=== PATIENT | female | born 1975 | race Caucasian/White ===

== ENCOUNTER 2017-12-02 06:08 | Inpatient (IN) ==
[2017-12-02] MEDS ORDERED: FAMOTIDINE 20 MG/2 ML VIAL IVP ONE (06:15)
[2017-12-02] MEDS ORDERED: ONDANSETRON 4 MG/2 ML VIAL IVP ONE ×3 (06:15→10:39)
[2017-12-02] MEDS ORDERED: Sodium Chloride 0.9% 1,000 ML PRIMARY IV ONE (06:15)
--- NOTE | 2017-12-02 06:22 | PDOC ---
Nausea/Vomiting/Diarrhea HPI - General Chief Complaint: Nausea / Vomiting / Diarrhea Stated Complaint: nausea,vomiting, "withdrawing from meds" Date Seen by Provider: 12/02/17 Time Seen by Provider: 06:15 Source: POSITIVE: Patient Exam Limitations: POSITIVE: No limitations Nurse's Notes Reviewed & Considered: Yes - History of Present Illness Initial Comments: The patient is a 42-year-old female who presents to the emergency department with vomiting, abdominal cramping and diarrhea. She has been taking hydrocodone for approximately a year after a back surgery. She had to stop taking this medication to go back to work 2 days ago. Last night she had onset of abdominal cramping, nausea vomiting and diarrhea. She thinks that this might be from withdrawal. She reports generalized abdominal pain. She has had previous cholecystectomy and breast reduction surgery. - Patient Home Medications Home Medications: Home Medications NK 12/02/17 - Patient Allergies Allergies/Adverse Reactions: Allergies 3 Allergy/AdvReac Type Severity Reaction Status Date / Time No Known Allergies Allergy Verified 12/02/17 06:12 Past Medical History Past Medical History Reviewed: Other (please comment) (As per nursing assessment ) ROS - Limitations ROS Limitations: No Limitations Constitution: REPORTS: Chills Cardiovascular: REPORTS: Denies Cardiac Symptoms Respiratory: REPORTS: Denies Resp Symptoms Neurological: REPORTS: Denies Neuro Symptoms Gastrointestinal: REPORTS: Abdominal Pain (Generalized), Nausea, Vomitting, Diarrhea. DENIES: Bloody Stools Endocrine: REPORTS: Denies Symptoms Musculoskeletal: REPORTS: Denies MS Symptoms Genitourinary: REPORTS: Denies Symptoms Eyes: REPORTS: Denies Symptoms ENT: REPORTS: Denies Symptoms Skin: DENIES: Rash Nausea/Vomiting/Diarrhea Exam - General Appearance General Appearance: POSITIVE: Alert, Cooperative, No Acute Distress - HEENT HEENT: POSITIVE: Head Inspection Nml, Eyes Inspection Nml, Ears Inspection Nml, Nose Inspection Nml - Neck Neck: POSITIVE: Supple - Respiratory Respiratory: POSITIVE: No Respiratory Distress, Breath Sounds Normal - Cardiovascular Cardiovascular: POSITIVE: Regular Rate and Rhythm, Heart Sounds Normal - Abdomen Abdomen: Soft: (All Quadrants), No Distention: (All Quadrants) - Extremities Extremity: Normal ROM: (All Extremities), Normal Inspection: (All Extremities) - Neurological / Psychological Neurological: POSITIVE: Other (No focal neurologic deficits) N/V/D Progress - Results Reviewed by me Xrays/CTs/US Reviewed by me: Yes Discussed with Radiologist: Yes Radiology Findings: CT scan of the abdomen and pelvis with IV contrast shows some inflammatory change with bowel wall thickening in the small bowel consistent with possible enteritis per radiologist. Lab Results Reviewed by Me: Yes CBC and BMP: 12/02/17 06:20 12/02/17 06:20 Lab Results:: Laboratory Results 3 12/02/17 12/02/17 12/02/17 06:20 06:20 06:20 WBC 13.95 H RBC 5.04 Hgb 14.1 Hct 41.6 MCV 82.5 MCH 28.0 MCHC 33.9 RDW Std Deviation 43.1 RDW Coeff of Linh 14.5 Plt Count 301 MPV 10.6 Immature Gran % (Auto) 0.2 Neut % (Auto) 81.8 H Lymph % (Auto) 13.7 Casey % (Auto) 3.7 L Eos % (Auto) 0.3 Baso % (Auto) 0.3 Immature Gran # (Auto) 0.03 Neut # (Auto) 11.41 Lymph # (Auto) 1.91 Casey # (Auto) 0.52 Eos # (Auto) 0.04 Baso # (Auto) 0.04 WBC Morphology Comment Normal morphology Plt Morphology Comment Normal morphology RBC Morph Comment Normal morphology Sodium 138 Potassium 4.4 Chloride 107 Carbon Dioxide 25 Anion Gap 6 BUN 9 Creatinine 0.7 Estimated GFR > 60 BUN/Creatinine Ratio 12.85 Glucose 156 H Calculated Osmolality 287.0 Calcium 9.3 Magnesium 1.9 Total Bilirubin 0.5 AST 28 ALT 44 Alkaline Phosphatase 84 C-Reactive Protein 1.2 H Total Protein 7.5 Albumin 4.2 Globulin 3.3 Albumin/Globulin Ratio 1.20 L Amylase 55 Lipase 72 Serum HCG, Qual Negative - Patient's Progress MDM / ED Course: An IV was established and the patient did receive 1 L bolus of normal saline as well as Zofran 4 mg IV, Pepcid 20 mg IV. She did not have any significant relief in nausea and subsequently received Compazine 5 mg IV. Patient had continued dry heaves and vomiting and received Ativan for treatment of possible withdrawal. She continued to have significant abdominal cramping as well as report that her skin is "crawling". She also had continued dry heaves and vomiting. She received a second dose of Zofran 4 mg IV. Blood work shows a mildly elevated white count at 13,000. The remainder of her blood work is essentially unremarkable. CT scan of the abdomen and pelvis shows some inflammatory change in bowel wall thickening in the small bowel consistent with possible enteritis with no other acute abnormalities per radiologist. Overall the patient's presentation is most likely consistent with narcotic withdrawal. I did discuss this with the patient. 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 The CAT scan also shows possible enteritis. The patient is still vomiting after multiple medications here in the emergency department and decision was made to admit. Dr. Valencia has agreed to admit the patient. He recommended starting Invanz for treatment of possible diverticulitis/enteritis. These findings and recommendations were discussed with the patient and she is in agreement with this plan. - Consult Counseled: POSITIVE: Patient, RE: Lab Results, RE: Radiology Results, RE: DX Patient Care Time - Estimated PCT Patient Care Time (In Minutes): 30 Vital Signs - Recent Vital Signs Vital Signs: Vital Signs (Last 8 hours) Temp Pulse Resp BP Pulse Ox 12/02/17 06:13 96.2 F L 67 18 146/78 97 - VS Reviewed Vital Signs Reviewed: Yes Discharge Clinical Impression: Abdominal pain, Enteritis, Vomiting, Dehydration, Narcotic withdrawal Discharge Disposition: Admit to Observation Condition: Fair Follow Up With: ULISES LEUNG [Primary Care Provider] -
[2017-12-02 06:25] LABS: BASOPHILS # (AUTO) 0.04 10*3/UL; BASOPHILS % (AUTO) 0.3 % (0-1); EOSINOPHILS # (AUTO) 0.04 10*3/UL; EOSINOPHILS % (AUTO) 0.3 % (0-8); Hematocrit [HCT] 41.6 % (37.0-47.0); Hemoglobin [HGB] 14.1 g/dL (12.0-16.0); LYMPHOCYTES # (AUTO) 1.91 10*3/uL; MEAN CORPUSCULAR HGB CONC 33.9 g/dL (33-37); MEAN CORPUSCULAR VOLUME 82.5 FL (81-99); MEAN PLATELET VOLUME 10.6 FL (7.4-12.2); MONOCYTES # (AUTO) 0.52 10*3/UL (0.3-0.8); MONOCYTES % (AUTO) 3.7 % (5-15); NEUTROPHILS # (AUTO) 11.41 10*3/UL; NEUTROPHILS % (AUTO) 81.8 % (50-80); RED BLOOD COUNT 5.04 10^6/uL (4.20-5.40)
[2017-12-02 06:40] LABS: BLOOD UREA NITROGEN 9 mg/dL (7-22); BUN/CREATININE RATIO 12.85 (6-20); LIPASE 72 IU/L (23-300); SERUM ALBUMIN 4.2 g/dL (3.5-4.8)
[2017-12-02] MEDS ORDERED: Prochlorperazine Edisylate Inj 10mg/2ml vial IVP ONE (06:40)
[2017-12-02 06:51] LABS: PLATELET MORPHOLOGY COMMENT NORMAL MORPHOLOGY (NORM); RBC MORPHOLOGY COMMENT NORMAL MORPHOLOGY (NORM); WBC MORPHOLOGY COMMENT NORMAL MORPHOLOGY (NORM)
[2017-12-02] MEDS ORDERED: LORazepam 2 MG/1 ML VIAL IVP ONE (07:40)
--- NOTE | 2017-12-02 07:54 | DI ---
EXAM: CT Abdomen and Pelvis With Intravenous Contrast. CLINICAL HISTORY: Abdominal pain and vomiting. TECHNIQUE: Axial computed tomography images of the abdomen and pelvis with intravenous contrast. COMPARISON: No relevant prior studies available. FINDINGS: Lower thorax: No acute findings. ABDOMEN: Liver: Unremarkable. No mass. Gallbladder and bile ducts: The gallbladder is surgically absent. No evidence of biliary obstruction.. Pancreas: Unremarkable. No ductal dilation. No mass. Spleen: Unremarkable. No splenomegaly. Adrenals: Unremarkable. No mass. Kidneys and ureters: Unremarkable. No hydronephrosis. No solid mass. PELVIS: Bladder: Unremarkable. No mass. Reproductive: Enlarged uterus likely due to presence of a fibroid. Simple appearing left ovarian cyst measuring up to 3.2 cm in diameter. Appendix: No findings to suggest acute appendicitis. ABDOMEN + PELVIS: Stomach and bowel: No bowel obstruction. Questionable mild concentric wall thickening of mid small bowel loops, though evaluation is limited by absence of enteric contrast. Peritoneum: Unremarkable. No significant fluid collection. No free air. Lymph nodes: Unremarkable. No enlarged lymph nodes. Vasculature: Unremarkable. No aortic aneurysm. Bones: No acute fracture. IMPRESSION: Questionable mild small bowel wall thickening, which may be due to infectious/inflammatory enteritis. Otherwise no evidence of acute inflammatory or obstructive process within the abdomen or pelvis. Fibroid uterus. Status post cholecystectomy.
[2017-12-02] MEDS ORDERED: Ertapenem Inj 1 GM in Sodium Chloride 0.9% 100 ML IV ONE (08:36)
[2017-12-02] MEDS ORDERED: LIDOCAINE W/ SODIUM BICARB 0.5 ML SYR SUBD PRN (10:11)
[2017-12-02 10:16] LABS: BILIRUBIN,URINE NEGATIVE (NEG); CLARITY,URINE Slightly Cloudy (CLEAR); COLOR,URINE YELLOW (Y); GLUCOSE, URINE (UA) NEGATIVE (NEG); OCCULT BLOOD,URINE Trace-intact (NEG); PROTEIN,URINE 30 mg/dl (NEG); UROBILINOGEN,URINE 0.2 EU/dL (0.2)
[2017-12-02] MEDS: KETOROLAC 15 MG/1 ML VIAL IVP PRN ×2 (10:26→17:12)
[2017-12-02] MEDS: Lactated Ringers 1,000 ML PRIMARY IV SCH ×2 (10:26→20:40)
[2017-12-02 10:30] LABS: RBC,URINE 0-1 /hpf; SQUAMOUS EPITHELIAL CELL,UR RARE; URINE SAMPLE TYPE CLEAN CATCH URINE; WBC,URINE 0
[2017-12-02 10:31] LABS: AMPHETAMINE SCREEN NEGATIVE (NEG); CANNABINOID SCREEN,URINE NEGATIVE (NEG); COCAINE SCREEN NEGATIVE (NEG); METHADONE URINE SCREEN NEGATIVE (NEG); METHAMPHETAMINES SCREEN,URINE NEGATIVE (NEG); OPIATE SCREEN,URINE POSITIVE (NEG); URINE SPECIFIC GRAVITY - MAN 1.015
--- NOTE | 2017-12-02 12:37 | PDOC ---
HPI - History of Present Illness History of Present Illness: T This is a very nice 42-year-old female presented to the emergency room complaining of some vomiting and abdominal cramping and loose stools not maliha diarrhea she has been taking hydrocodone for a year after back surgery and she states that she stopped taking this medications a couple of days ago for her work issues she thinks that she is having withdrawal other past medical history significant for breast reduction and cholecystectomy. Urine tox screen positive for opiates and benzos she did not receive any benzos are opiates here in the hospital Past Medical History Surgical History: Cholecystectomy, breast reduction Tobacco Use: Current Every Day Smoker In the Past 12 Months, Have Used or Abuse Any of the Following Substance: None Medication / Allergies Home Medications: Home Medications 3 Medication Instructions Recorded Confirmed Type NK 12/02/17 12/02/17 History Allergies/Adverse Reactions: Allergies 3 Allergy/AdvReac Type Severity Reaction Status Date / Time No Known Allergies Allergy Verified 12/02/17 06:12 Review of Systems - Review of Systems All Systems: Reviewed & No Additional Complaints Except as Stated - Respiratory Respiratory: DENIES: Negative System Review, Cough, Sputum, Dyspnea At Rest, Dyspnea with Exertion, Pleuritic Pain, Hemoptysis, Wheezing, Other, See HPI - Gastrointestinal Gastrointestinal / Abdominal: REPORTS: Nausea, Diarrhea Exam - Vitals Vital Signs: Vital Signs Temperature 97.8 F Temperature Source Temporal Artery Scan Pulse Rate [Pulse Oximeter] 68 Respiratory Rate 22 Blood Pressure [Left Arm] 149/58 Pulse Ox 94 Oxygen Delivery Method Room Air Height 5 ft 5 in Weight 206 lb - General General Appearance: No Acute Distress, Cooperative - Respiratory Respiratory Exam: POSITIVE: Clear to Auscultation - Bilaterally, Breathing Non Labored, Normal To Percussion, Normal to Percussion and Palpation - Cardiovascular Cardiovascular Exam: POSITIVE: RRR, No Murmur, No Clicks, No Gallops, No Rubs, PMI Non-Displaced - GI/Abdominal GI/Abdominal Exam: POSITIVE: Normal Bowel Sounds, Non Tender, Non Distended, Soft, No Masses, No Hepatomegaly, No Splenomegaly, No Organomegaly - Extremities Extremities Exam: POSITIVE: No Clubbing Present, No Edema Present, No Cyanosis Present Results - Labs CBC and BMP: 12/02/17 06:20 12/02/17 06:20 Assessment and Plan - Patient Problems (1) Abdominal pain Current Visit: Yes Status: Acute Comment: Patient seems to be not in pain at present time physical exam benign abdomen no rebound no guarding totally soft. She still has open dose in her urine hard to tell this is would draw she does have some enteritis on CT scan and patient is being treated with Invanz we will keep hydrating and reevaluate Code(s): R10.9 - Unspecified abdominal pain
[2017-12-02] MEDS: LORazepam 2 MG/1 ML VIAL IVP PRN ×2 (13:28→20:40)
[2017-12-02] MEDS: ONDANSETRON 4 MG/2 ML VIAL IVP PRN ×2 (17:13→22:45)
[2017-12-02 20:10] VITALS: RESP 20
[2017-12-03] MEDS: KETOROLAC 15 MG/1 ML VIAL IVP PRN ×2 (01:15→07:39)
[2017-12-03] MEDS ORDERED: LORazepam 2 MG/1 ML VIAL IVP ONE (01:20)
[2017-12-03] MEDS ORDERED: LORazepam 2 MG/1 ML VIAL IVP PRN ×2 (01:33→07:47)
[2017-12-03] MEDS: ONDANSETRON 4 MG/2 ML VIAL IVP PRN ×2 (04:17→11:03)
[2017-12-03 04:21] VITALS: O2SAT 94
[2017-12-03] MEDS: Lactated Ringers 1,000 ML PRIMARY IV SCH ×3 (05:21→10:51)
[2017-12-03 05:37] LABS: BLOOD UREA NITROGEN 12 mg/dL (7-22); LIPASE 37 IU/L (23-300); SERUM ALBUMIN 3.4 g/dL (3.5-4.8)
[2017-12-03 07:43] LABS: BASOPHILS # (AUTO) 0.03 10*3/UL; BASOPHILS % (AUTO) 0.3 % (0-1); EOSINOPHILS # (AUTO) 0.04 10*3/UL; EOSINOPHILS % (AUTO) 0.3 % (0-8); Hematocrit [HCT] 35.3 % (37.0-47.0); Hemoglobin [HGB] 11.8 g/dL (12.0-16.0); LYMPHOCYTES # (AUTO) 2.53 10*3/uL; MEAN CORPUSCULAR HGB CONC 33.4 g/dL (33-37); MEAN CORPUSCULAR VOLUME 83.6 FL (81-99); MEAN PLATELET VOLUME 10.9 FL (7.4-12.2); MONOCYTES # (AUTO) 0.85 10*3/UL (0.3-0.8); MONOCYTES % (AUTO) 7.1 % (5-15); NEUTROPHILS # (AUTO) 8.44 10*3/UL; NEUTROPHILS % (AUTO) 70.9 % (50-80); RED BLOOD COUNT 4.22 10^6/uL (4.20-5.40)
[2017-12-03] MEDS ORDERED: Ertapenem Inj 1 GM in Sodium Chloride 0.9% 100 ML IV SCH (08:00)
[2017-12-03] MEDS ORDERED: MORPHINE SULFATE 2 MG/1 ML IVP PRN (08:15)
[2017-12-03 08:23] LABS: PLATELET MORPHOLOGY COMMENT NORMAL MORPHOLOGY (NORM); RBC MORPHOLOGY COMMENT NORMAL MORPHOLOGY (NORM); WBC MORPHOLOGY COMMENT NORMAL MORPHOLOGY (NORM)
[2017-12-03 09:38] VITALS: BP 148/77; TEMP 98.2
--- NOTE | 2017-12-03 10:47 | DCSUMMARY ---
Hospitalization Summary Hospital Course: Final Discharge Diagnosis: Current Visit Problems Problem Status Onset Code Abdominal pain Acute R10.9 Enteritis Acute K52.9 Vomiting Acute R11.10 Dehydration Acute E86.0 Narcotic withdrawal Acute F11.23 Diagnostic Data, Laboratory Data, and Procedures of Signifigance: Laboratory Results 12/03/17 12/03/17 Range/Units 04:40 04:43 WBC 11.91 H (4.8-10.8) 10^3/uL RBC 4.22 (4.20-5.40) 10^6/uL Hgb 11.8 L (12.0-16.0) g/dL Hct 35.3 L (37.0-47.0) % MCV 83.6 (81-99) FL MCH 28.0 (27-31) PG MCHC 33.4 (33-37) g/dL RDW Std Deviation 42.2 (39-50) fL RDW Coeff of Linh 14.3 (11.5-14.5) % Plt Count 261 (140-350) 10*3/uL MPV 10.9 (7.4-12.2) FL Immature Gran % (Auto) 0.2 (0-5) % Neut % (Auto) 70.9 (50-80) % Lymph % (Auto) 21.2 (10-50) % Mingo % (Auto) 7.1 (5-15) % Eos % (Auto) 0.3 (0-8) % Baso % (Auto) 0.3 (0-1) % Immature Gran # (Auto) 0.02 10*3/UL Neut # (Auto) 8.44 10*3/UL Lymph # (Auto) 2.53 10*3/uL Mingo # (Auto) 0.85 H (0.3-0.8) 10*3/UL Eos # (Auto) 0.04 10*3/UL Baso # (Auto) 0.03 10*3/UL WBC Morphology Comment Normal morphology (NORM) Plt Morphology Comment Normal morphology (NORM) RBC Morph Comment Normal morphology (NORM) Sodium 135 (135-145) meq/L Potassium 3.9 (3.8-5.2) meq/L Chloride 105 (98-112) meq/L Carbon Dioxide 24 (23-33) meq/L Anion Gap 6 (5-20) BUN 12 (7-22) mg/dL Creatinine 0.8 (0.50-1.20) mg/dL Estimated GFR > 60 (>60 ml/min/1.73m(2)) BUN/Creatinine Ratio 15.00 (6-20) Glucose 120 H (78-110) mg/dL Calculated Osmolality 280.0 (267-292) mOsm/kg Calcium 8.8 (8.7-10.7) mg/dL Total Bilirubin 0.4 (0.3-1.2) mg/dL AST 17 (8-39) IU/L ALT 33 (9-52) IU/L Alkaline Phosphatase 64 (38-126) IU/L Total Protein 6.0 L (6.1-8.0) g/dL Albumin 3.4 L (3.5-4.8) g/dL Globulin 2.6 (2.50-4.10) g/dL Albumin/Globulin Ratio 1.30 (1.3-2.0) mg/g Amylase < 30 L (30-110) U/L Lipase 37 (23-300) IU/L History and Physical pertinent to Admission: Course of Hospitalization: Is a very nice 42-year-old female who comes in with abdominal pain CT scan abdomen and pelvis revealed the enteritis. Patient requested the Ativan specifically around the clock for her anxiety. She did feel better yesterday took showers slept. Physical exams were always a benign abdomen absolutely soft no illicit elicitation of pain on deep mild palpation patient receive the Invanz yesterday and 1 dose today her white count is from 13,000 to 11,000. Left shift as disappeared. Patient is a required morphine she said that the Toradol did not work patient did receive morphine yesterday. She does have opiates in the urine I did discuss the case with Dr. Easton and made him aware. She states that she has still some pain today again the physical exam of the abdomen is unremarkable with no pain on deep mild palpation in all quadrants and areas. I offered her to repeat CAT scan also to get surgical consult and depending on the CAT scan results that there was an something more also offered transferred to [facility] if needed. Patient stated that the she would like to be discharged home. I told her that would be fine but if she is still in pain I would recommend her to get her CAT scan I did tell her that her white count was improved and physical exam did not reveal any acute abdomen but if she still wasn't pain I was willing to repeat the CAT scan plus all the above. She wishes to be discharged home I told her that she at least needs to eat something and see if she tolerates it without nausea or vomiting this with active put her on oral antibiotics and close follow-up with her primary care physician. Again I reiterated all these things and the patient is not changing her mind on going home this was discussed with Sabi nursing at the bedside and her significant other at the bedside as well On the date of discharge, the patient was examined: Gen.: No acute distress, alert, nontoxic Heart: Regular rate and rhythm, no murmurs, clicks, gallops, or rubs Lungs: Clear to auscultation bilaterally, breathing is nonlabored Abdomen/GI: Normal tones on auscultation, soft, nontender, nondistended Musculoskeletal/extremities: No clubbing, cyanosis, or edema Vitals reviewed and are listed below Vital Signs (24 hrs) Temp Pulse Resp BP Pulse Ox 12/03/17 09:00 98.2 F 50 L 20 148/77 94 12/03/17 04:21 98.3 F 71 20 133/65 94 12/02/17 23:55 98.3 F 67 20 119/62 93 12/02/17 20:09 98.4 F 57 L 20 137/71 96 12/02/17 17:00 98.5 F 69 18 132/65 93 12/02/17 13:00 98.1 F 65 18 149/45 93 Assessment and Plan: 1. As per discharge assessments above 2. Disposition: Home did offer the patient to stay and continue the workup I told her was not advisable if she still had the pain she was talking about but I did not elicit any pain on physical exam. 3. Condition on discharge, stable and improved. 4. Diet: Advance diet as tolerated 5. Activities: resume normal activities 6. Follow-Up: 1. PCP Dr. Easton 2. 7. Medications at the Time of Discharge: Home Medications 3 Medication Instructions Recorded Confirmed Type Amox Tr/Potassium Clavulanate 1 ea PO BID #16 tab 12/03/17 Rx [Augmentin 875-125 Tablet] Ondansetron Odt [Zofran ODT] 4 mg PO Q6HR PRN #8 tab.rapdis 12/03/17 Rx 8. Time, care, counseling and coordination of care for this discharge is greater than 30 minutes. Exam - Vitals Vital Signs: Vital Signs Temperature 98.2 F Temperature Source Temporal Artery Scan Pulse Rate [Pulse Oximeter] 50 Respiratory Rate 20 Blood Pressure [Left Arm] 148/77 Pulse Ox 94 Oxygen Delivery Method Room Air Height 5 ft 5 in Weight 207 lb 9.6 oz Patient Problems - Patient Problem List (1) Abdominal pain Current Visit: Yes Status: Acute Code(s): R10.9 - Unspecified abdominal pain Category: Medical
== END 2017-12-03 11:16 | disposition home or self-care (01) | DRG 392 ==
LOC: ER 06:08 → MED/SURG 09:51
PROVIDERS: ADMIT Internal Medicine; ATTEND Internal Medicine